=== PATIENT | male | born 1940 | race Caucasian/White ===

== ENCOUNTER 2022-08-18 12:02 | Emergency (ER) | payer OTHER ==
--- OUTSIDE RECORDS SUMMARY | 2022-08-18 12:21 | XMS REPORT | Continuity of Care Document ---
:1940 Author Organization Formerly [facility] t Address [address] [place] [address] [place] [id number] Care Team Providers Name Role Phone [phone] Primary Care Physician Unavailable BREN GREEN Attending Clinician Unavailable DAVE LI Attending Clinician Unavailable BRENDAN VYAS Attending Clinician Unavailable HAMIDA AGGARWAL Attending Clinician Unavailable NASRA GUTIERREZ Attending Clinician Unavailable JOHN CASON Attending Clinician Unavailable NYA ONOFRE Attending Clinician Unavailable BREN GREEN Admitting Clinician Unavailable Payers Payer Name Policy Type Policy Number Effective Date Expiration Date S naomi [facility] MEDICARE [id number] 2020 ADVANTAGE 00:00:00 [employer] CHOICE [id number] 2017 2020 MEDICARE PPO 00:00:00 00:00:00 MEDICARE PART A [id number] 2017 AND B 00:00:00 00:00:00 [employer] NON [id number] 2011 2017 CONTRACTED 00:00:00 00:00:00 [employer] PPO POS [id number] 2011 2011 00:00:00 00:00:00 Problems This patient has no known problems. Allergies, Adverse Reactions, Alerts Allergy Allergy Status Severity Reaction(s) Onset Inactive Treating Comm ents Source Name Type Date Date Clinician CLINDAMY DRUG Active Nausea 2015-0 MD LUNA INGREDI 03-11 Anderso 00:00: n 00 CLINDAMY DRUG Active Nausea 0 MD LUNA INGREDI 03-11 Anderso 00:00: n 00 CLINDAMY DRUG Active Nausea 2015-0 MD LUNA INGREDI 03-11 Anderso 00:00: n 00 CLINDAMY DRUG Active Nausea 2016-0 MD JEREMY INGREDI 1-28 Anderso 00:00: n 00 CLINDAMY DRUG Active Nausea 2016-0 MD JEREMY INGREDI 1-28 Anderso 00:00: n 00 CLINDAMY DRUG Active Nausea 2016-0 MD JEREMY INGREDI 1-28 Anderso 00:00: n 00 CLINDAMY DRUG Active Nausea 2016-0 MD JEREMY INGREDI 1-28 Anderso 00:00: n 00 CLINDAMY DRUG Active Nausea 2016-0 MD JEREMY INGREDI 1-28 Anderso 00:00: n 00 CLINDAMY DRUG Active Nausea 2016-0 MD JEREMY INGREDI 1-28 Anderso 00:00: n 00 CLINDAMY DRUG Active Nausea 2016-0 MD JEREMY INGREDI 1-28 Anderso 00:00: n 00 CLINDAMY DRUG Active Nausea 2016-0 MD JEREMY INGREDI 1-28 Anderso 00:00: n 00 CLINDAMY DRUG Active Nausea 2016-0 MD JEREMY INGREDI 1-28 Anderso 00:00: n 00 CLINDAMY DRUG Active Nausea 2016-0 MD JEREMY INGREDI 1-28 Anderso 00:00: n 00 CLINDAMY DRUG Active Nausea 2016-0 MD JEREMY INGREDI 1-28 Anderso 00:00: n 00 CLINDAMY DRUG Active Nausea 2016-0 MD JEREMY INGREDI 1-28 Anderso 00:00: n 00 CLINDAMY DRUG Active Nausea 2016-0 MD JEREMY INGREDI 1-28 Anderso 00:00: n 00 CLINDAMY DRUG Active Nausea 2016-0 MD JEREMY INGREDI 1-28 Anderso 00:00: n 00 CLINDAMY DRUG Active Nausea 2016-0 MD JEREMY INGREDI 1-28 Anderso 00:00: n 00 CLINDAMY DRUG Active Nausea 2016-0 MD JEREMY INGREDI 1-28 Anderso 00:00: n 00 CLINDAMY DRUG Active Nausea 2016-0 MD JEREMY INGREDI 1-28 Anderso 00:00: n 00 CLINDAMY DRUG Active Nausea 2016-0 MD JEREMY INGREDI 1-28 Anderso 00:00: n 00 CLINDAMY DRUG Active Nausea 2016-0 MD JEREMY INGREDI 1-28 Anderso 00:00: n 00 CLINDAMY DRUG Active Nausea 2016-0 MD JEREMY INGREDI 1-28 Anderso 00:00: n 00 CLINDAMY DRUG Active Nausea 2016-0 MD JEREMY INGREDI 1-28 Anderso 00:00: n 00 CLINDAMY DRUG Active Nausea 2016-0 MD JEREMY INGREDI 1-28 Anderso 00:00: n 00 CLINDAMY DRUG Active Nausea 2016-0 MD JEREMY INGREDI 1-28 Anderso 00:00: n 00 CLINDAMY DRUG Active Nausea 2016-0 MD JEREMY INGREDI 1-28 Anderso 00:00: n 00 CLINDAMY DRUG Active Nausea 2016-0 MD JEREMY INGREDI 1-28 Anderso 00:00: n 00 CLINDAMY DRUG Active Nausea 2016-0 MD JEREMY INGREDI 1-28 Anderso 00:00: n 00 CLINDAMY DRUG Active Nausea 2016-0 MD JEREMY INGREDI 1-28 Anderso 00:00: n 00 CLINDAMY DRUG Active Nausea 2016-0 MD JEREMY INGREDI 1-28 Anderso 00:00: n 00 CLINDAMY DRUG Active Nausea 2016-0 MD JEREMY INGREDI 1-28 Anderso 00:00: n 00 CLINDAMY DRUG Active Nausea 2016-0 MD JEREMY INGREDI 1-28 Anderso 00:00: n 00 CLINDAMY DRUG Active Nausea 2016-0 MD JEREMY INGREDI 1-28 Anderso 00:00: n 00 CLINDAMY DRUG Active Nausea 2016-0 MD JEREMY INGREDI 1-28 Anderso 00:00: n 00 CLINDAMY DRUG Active Nausea 2016-0 MD JEREMY INGREDI 1-28 Anderso 00:00: n 00 CLINDAMY DRUG Active Nausea 2016-0 MD JEREMY INGREDI 1-28 Anderso 00:00: n 00 CLINDAMY DRUG Active Nausea 2016-0 MD JEREMY INGREDI 1-28 Anderso 00:00: n 00 CLINDAMY DRUG Active Nausea 2016-0 MD JEREMY INGREDI 1-28 Anderso 00:00: n 00 CLINDAMY DRUG Active Nausea 2016-0 MD JEREMY INGREDI 1-28 Anderso 00:00: n 00 CLINDAMY DRUG Active Nausea 2016-0 MD JEREMY INGREDI 1-28 Anderso 00:00: n 00 CLINDAMY DRUG Active Nausea 2016-0 MD JEREMY INGREDI 1-28 Anderso 00:00: n 00 CLINDAMY DRUG Active Nausea 2016-0 MD JEREMY INGREDI 1-28 Anderso 00:00: n 00 CLINDAMY DRUG Active Nausea 2016-0 MD JEREMY INGREDI 1-28 Anderso 00:00: n 00 CLINDAMY DRUG Active Nausea 2016-0 MD JEREMY INGREDI 1-28 Anderso 00:00: n 00 CLINDAMY DRUG Active Nausea 2016-0 MD JEREMY INGREDI 1-28 Anderso 00:00: n 00 CLINDAMY DRUG Active Nausea 2016-0 MD JEREMY INGREDI 1-28 Anderso 00:00: n 00 CLINDAMY DRUG Active Nausea 2016-0 MD JEREMY INGREDI 1-28 Anderso 00:00: n 00 CLINDAMY DRUG Active Nausea 2016-0 MD JEREMY INGREDI 1-28 Anderso 00:00: n 00 CLINDAMY DRUG Active Nausea 2016-0 MD JEREMY INGREDI 1-28 Anderso 00:00: n 00 CLINDAMY DRUG Active Nausea 2016-0 MD JEREMY INGREDI 1-28 Anderso 00:00: n 00 CLINDAMY DRUG Active Nausea 2016-0 MD JEREMY INGREDI 1-28 Anderso 00:00: n 00 CLINDAMY DRUG Active Nausea 2016-0 MD JEREMY INGREDI 1-28 Anderso 00:00: n 00 CLINDAMY DRUG Active Nausea 2016-0 MD JEREMY INGREDI 1-28 Anderso 00:00: n 00 CLINDAMY DRUG Active Nausea 2016-0 MD JEREMY INGREDI 1-28 Anderso 00:00: n 00 CLINDAMY DRUG Active Nausea 2016-0 MD JEREMY INGREDI 1-28 Anderso 00:00: n 00 CLINDAMY DRUG Active Nausea 2016-0 MD JEREMY INGREDI 1-28 Anderso 00:00: n 00 CLINDAMY DRUG Active Nausea 2016-0 MD JEREMY INGREDI 1-28 Anderso 00:00: n 00 CLINDAMY DRUG Active Nausea 2016-0 MD JEREMY INGREDI 1-28 Anderso 00:00: n 00 Medications This patient has no known medications. Vital Signs Vital Name Observation Time Observation Value Comments Source WEIGHT 2020-03-26 12:00:40 63.5 kg WEIGHT 2019-09-26 08:26:28 63.5 kg WEIGHT 2019-09-19 10:56:26 62.4 kg Procedures This patient has no known procedures. Encounters Start End Encounter Admission Attending Care Care Encounter Source Date/Time Date/Time Type Type Clinicians Facility Department ID 2021-03-17 Outpatient MDA MDA [id number] 18:17:32 Anderso n 2019-09-19 Outpatient MDA MDA [id number] 08:58:31 Andpk brambila 2022-07-21 2022-07-21 Outpatient SAULO GREEN, MDA Collin/Hep/Nu [id number] 07:48:00 11:14:00 CHATA Mccray n 2022-07-20 2022-07-20 Outpatient JEN, MDA MDA [id number] MD 07:07:10 07:07:10 DAVE Rodriguezers o kosta 2022-06-14 2022-06-14 Outpatient JEN, MDA MDA [id number] 09:30:00 23:59:00 DAVE Yao o kosta 2022-06-14 2022-06-14 Outpatient BRENDAN TADEO MDA MDA [id number] 13:03:51 13:38:00 Maximilian brambila 2022-06-14 2022-06-14 Outpatient JEN, MDA MDA [id number] MD 09:52:15 09:52:15 DAVE Yao o kosta 2022-03-21 2022-03-21 Outpatient SAULO AGGARWAL, HAMIDA MDA MDA [id number] 07:45:00 23:59:00 Maximilian o kosta 2022-03-21 2022-03-21 Outpatient ALESSIA, HAMIDA MDA MDA [id number] 10:56:25 12:01:56 Maximilian o kosta 2022-03-21 2022-03-21 Outpatient SAULO AGGARWAL, HAMIDA MDA MDA [id number] 09:04:42 09:04:42 Maximilian o kosta 2021-12-16 2021-12-16 Outpatient JEN, MDA MDA [id number] 08:15:00 23:59:00 DAVE Yao o kosta 2021-12-16 2021-12-16 Outpatient JEN, MDA MDA [id number] MD 09:42:26 09:42:26 DAVE Yao o kosta 2020-12-15 2020-12-15 Outpatient JEN, MDA MDA [id number] 12:21:16 23:59:00 DAVE brambila 2020-12-15 2020-12-15 Outpatient SAULO LI, MDA MDA [id number] 12:21:42 17:02:03 DAVE brambila 2020-10-21 2020-10-21 Outpatient HAMLET AMBROSEI MDA MDA [id number] 09:15:00 23:59:00 Maximilian brambila 2020-10-21 2020-10-21 Outpatient HAMLET AMBROSEI MDA MDA [id number] 09:52:37 10:52:13 Maximilian o kosta 2020-10-21 2020-10-21 Outpatient HAMLET AMBROSEI MDA MDA [id number] 08:42:05 08:42:05 Maximilian brambila 2020-09-17 2020-09-17 Outpatient SAULO LI, MDA MDA [id number] 08:48:03 23:59:00 DAVE brambila 2020-09-17 2020-09-17 Outpatient SAULO LI, MDA MDA [id number] 08:48:26 15:04:22 DAVE brambila 2020-05-24 2020-05-24 Outpatient SAULO LI, MDA MDA [id number] 09:00:00 23:59:00 DAVE brambila 2020-05-24 2020-05-24 Outpatient SAULO LI, MDA MDA [id number] 10:28:17 10:28:17 DAVE brambila 2020-03-26 2020-03-26 Outpatient [facility] MDA MDA [id number] 08:25:26 23:59:00 Maximilain BOUCHER 2020-03-26 2020-03-26 Outpatient BRENDAN TADEO MDA MDA [id number] 09:06:56 21:24:58 Maximilian brambila 2020-03-26 2020-03-26 Outpatient SAULO LI, MDA MDA [id number] 08:26:12 13:39:50 DAVE brambila 2020-03-25 2020-03-25 Outpatient BRENDAN TADEO MDA MDA [id number] 00:00:00 00:00:00 Maximilian brambila 2020-03-24 2020-03-24 Outpatient SAULO LI, MDA MDA [id number] MD 00:00:00 00:00:00 DAVE brambila 2020-03-24 2020-03-24 Outpatient SAULO NERI MDA MDA [id number] 00:00:00 00:00:00 Maximilian BOUCHER 2019-09-26 2019-09-26 Outpatient SAULO AGGARWAL HAMIDA MDA MDA [id number] 08:09:41 23:59:00 Maximilian brambila 2019-09-22 2019-09-22 Outpatient SAULO AGGARWAL, HAMIDA MDA MDA [id number] 12:17:52 13:21:34 Maximilian brambila 2019-09-19 2019-09-19 Outpatient SAULO LI, MDA MDA [id number] 07:48:44 23:59:00 DAVE brambila 2019-09-19 2019-09-19 Outpatient SAULO IL, MDA MDA [id number] 07:49:16 12:47:10 DAVE brambila 2019-09-19 2019-09-19 Outpatient SAULO CHAAHL-HENR MDA MDA [id number] 09:39:05 09:39:05 Y, JOHN brambila 2019-09-19 2019-09-19 Outpatient NYA LUZ MDA MDA [id number] 08:05:42 08:49:41 Maximilian brambila 2017-10-19 2017-10-19 Outpatient EL SALAMI-HENR MDA MDA [id number] 12:18:00 18:07:16 Y, JOHN brambila 2017-04-05 2017-04-05 Outpatient EL SALAMI-HENR MDA MDA [id number] 00:00:00 00:00:00 Y, JOHN brambila 2017-04-04 2017-04-04 Outpatient EL SALAMI-HENR MDA MDA [id number] 00:00:00 00:00:00 Y, JOHN brambila Results This patient has no known results.
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
--- NOTE | 2022-08-18 13:48 | EDPHYS ---
Physician Documentation [facility] Name: Reed Claire Age: 82 yrs Sex: Male : 1940 Arrival Date: 08/18/2022 Time: 12:02 Bed 15 Private MD: Dayton Coon ED Physician Delvis Kasper HPI: 08/18 12:51 This 82 yrs old Male presents to ER via Ambulatory with complaints of Fall Injury, Head sp3 Injury-Adult. 12:51 82-year-old male with history of prior leukemia, diabetes insipidus, adrenal sp3 insufficiency now presents to the ED with chief complaint close head injury that occurred yesterday evening at home. Patient was sitting on a barstool without a back and fell asleep and tilted over and hit the sharp edge of the table on the superior aspect of his scalp. Negative LOC and only mild headache reported yesterday which has now subsequently resolved. Currently patient has no complaints whatsoever other than the swelling at the top of his head. Patient not on any antiplatelet agents or any anticoagulants. No prior head injury reported. On review of systems, he denies current headache, neck pain, facial pain, changes in vision, any neurological symptoms, and chest pain, back pain, shortness of breath, syncope, near syncope, rash, bleeding, or any other signs or symptoms at this time.. Historical: - Allergies: 12:16 Clindamycin; os - Home Meds: 12:16 Calcarb 600 With Vitamin D Oral [Active]; desmopresin 0.1 mg tab bid [Active]; os hydrocortisone 5 mg oral tablet 3 tabs [Active]; levothyroxine 112 mcg tablet [Active]; lisinopril 10 mg Oral tablet once [Active]; 12:22 Metamucil Smooth Texture Oral [Active]; Miralax 17 gram/dose Oral powder 17 grams prn os [Active]; valacyclovir 1 gram Oral tablet daily [Active]; - PMHx: 12:21 Leukemia; diabetes insipidous; os 12:22 adrenal insufficiency; Hypothyroidism; Osteoporosis; os - Immunization history:: Adult Immunizations up to date. - Social history:: Smoking status: Patient denies any tobacco usage or history of. ROS: 12:52 Constitutional: Negative for fever, chills, and weight loss, Eyes: Negative for injury, sp3 pain, redness, and discharge, ENT: Negative for injury, pain, and discharge, Neck: Negative for injury, pain, and swelling, Cardiovascular: Negative for chest pain, palpitations, and edema, Respiratory: Negative for shortness of breath, cough, wheezing, and pleuritic chest pain, Abdomen/GI: Negative for abdominal pain, nausea, vomiting, diarrhea, and constipation, Back: Negative for injury and pain, : Negative for injury, bleeding, discharge, and swelling, MS/Extremity: Negative for injury and deformity, Skin: Negative for injury, rash, and discoloration, Psych: Negative for depression, anxiety, suicide ideation, homicidal ideation, and hallucinations, Allergy/Immunology: Negative for hives, rash, and allergies, Endocrine: Negative for neck swelling, polydipsia, polyuria, polyphagia, and marked weight changes, Hematologic/Lymphatic: Negative for swollen nodes, abnormal bleeding, and unusual bruising. 12:52 All other systems are negative. Exam: 12:52 Constitutional: This is a well developed, well nourished patient who is awake, alert, sp3 and in no acute distress. Eyes: Pupils equal round and reactive to light, extra-ocular motions intact. Lids and lashes normal. Conjunctiva and sclera are non-icteric and not injected. Cornea within normal limits. Periorbital areas with no swelling, redness, or edema. ENT: Nares patent. No nasal discharge, no septal abnormalities noted. External auditory canals are clear. Oropharynx with no redness, swelling, or masses, exudates, or evidence of obstruction, uvula midline. Mucous membranes moist. Neck: Trachea midline, no thyromegaly or masses palpated, and no cervical lymphadenopathy. Supple, full range of motion without nuchal rigidity, or vertebral point tenderness. No Meningismus. Chest/axilla: Normal chest wall appearance and motion. Nontender with no deformity. No lesions are appreciated. Cardiovascular: Regular rate and rhythm with a normal S1 and S2. No gallops, murmurs, or rubs. Normal PMI, no JVD. No pulse deficits. Respiratory: Lungs have equal breath sounds bilaterally, clear to auscultation and percussion. No rales, rhonchi or wheezes noted. No increased work of breathing, no retractions or nasal flaring. Abdomen/GI: Soft, non-tender, with normal bowel sounds. No distension or tympany. No guarding or rebound. No evidence of tenderness throughout. Back: No spinal tenderness. No costovertebral tenderness. Full range of motion. Skin: Warm, dry with normal turgor. Normal color with no rashes, no lesions, and no evidence of cellulitis. MS/ Extremity: Pulses equal, no cyanosis. Neurovascular intact. Full, normal range of motion. Neuro: Awake and alert, GCS 15, oriented to person, place, time, and situation. Cranial nerves II-XII grossly intact. Motor strength 5/5 in all extremities. Sensory grossly intact. Cerebellar exam normal. Normal gait. Psych: Awake, alert, with orientation to person, place and time. Behavior, mood, and affect are within normal limits. 12:52 Head/face: Patient has a 3 cm x 3 cm boggy hematoma on the superior aspect of his head with mild overlying abrasion which is not currently bleeding. No laceration noted.. Vital Signs: 12:26 BP 132 / 89; Pulse 88; Resp 18; Temp 98; Pulse Ox 100% on R/A; os 13:00 BP 127 / 87; Pulse 74; Resp 18; Pulse Ox 99% on R/A; eh3 MDM: 12:27 Patient medically screened. sp3 12:53 Data reviewed: vital signs, nurses notes, old medical records, radiologic studies. ED sp3 course: 82-year-old male with PMH above now with closed head injury of the scalp. I am not highly suspicious for intracranial hemorrhage however CT scan of the head is indicated. If CT is negative, we will safely discharge patient home.. 13:46 ED course: CT scan of the head is negative and patient remains asymptomatic. We will sp3 safely discharge patient home at this time.. 08/18 12:28 Order name: CT Head Brain wo Cont; Complete Time: 13:46 sp3 Administered Medications: No medications were administered Disposition Summary: 08/18/22 13:47 Discharge Ordered Location: Home sp3 Condition: Stable sp3 Diagnosis - Closed head injury, scalp hematoma, scalp abrasion sp3 Followup: sp3 - With: Private Physician - When: As needed - Reason: If symptoms return, Continuance of care Discharge Instructions: - Discharge Summary Sheet sp3 - Head Injury, Adult sp3 Forms: - Medication Reconciliation Form sp3 - Thank You Letter sp3 - Antibiotic Education sp3 - Prescription Opioid Use sp3 - [email or web address] sp3 Signatures: Dispatcher [employer] Delvis Mina MD MD sp3 Cisco Arnold RN RN os Corrections: (The following items were deleted from the chart) 12:26 12:16 Allergies: No Known Allergies; os os
[2022-08-18 14:27] VITALS: TEMP 98
[2022-08-18 14:28] VITALS: BP 127/87; O2SAT 99
== END 2022-08-18 13:55 | disposition home or self-care (01) ==
LOC: ER 12:02
DX: S00.01XA Abrasion of scalp, initial encounter (principal); E11.9 Type 2 diabetes mellitus without complications; E03.9 Hypothyroidism, unspecified; Z85.6 Personal history of leukemia; Z88.3 Allergy status to other anti-infective agents
CPT/HCPCS: 70450; 99283

== ENCOUNTER 2024-03-08 18:34 | Emergency (ER) | payer OTHER ==
--- OUTSIDE RECORDS SUMMARY | 2024-03-08 18:39 | XMS REPORT | Continuity of Care Document ---
Author Name Unknown Address [address] [place] [address] [address] thconnect Address [address] [facility] 1 [address] [place] [address] Care Team Providers Care Mangle Tender Name Role Phone [phone] Primary Care Physician NEGRO Heath Attending Clinician DAVE Seymour Attending Clinician BRENDAN Shelby Attending Clinician NUBIA Gonzales Attending Clinician HAMIDA Berumen Attending Clinician Unavailable BREN GREEN Attending Clinician NASRA Wagner Attending Clinician JOHN Leonard Attending Clinician NYA Combs Attending Clinician BREN Harris Admitting Clinician Hernesto walker Payers Payer Name Policy Type Policy Number Effective Date Expirati on Date Source [facility] MEDICARE ADVANTAGE [id number] 2020 00:00:00 [employer] MEDICARE PPO [id number] 2017 00:00:00 2020 00:00:00 MEDICARE PART A AND B [id number] 2004 00:00:00 2017 00:00:00 [employer] NON CONTRACTED [id number] 2011 00:00:00 2017 00:00:00 [employer] PPO POS [id number] 2011 00:00:00 2011 00:00:00 Allergies, Adverse Reactions, Alerts Allergy Name Allergy Type Status Severity Reaction(s) Onset Date Inactive Date Treating Clinician Comments Source [facility] Active Nausea 03-11 00:00: 00 MD Javier brambila [employer] [employer] [facility] Active Nausea 03-11 00:00: 00 MD Javier brambila [facility] Active Nausea 03-11 00:00: 00 MD Javier brambila [facility] Active Nausea 03-11 00:00: 00 MD Javier brambila [facility] Active Nausea 03-11 00:00: 00 MD Javier brambila [facility] Active Nausea 03-11 00:00: 00 MD Javier brambila [facility] Active Nausea 03-11 00:00: 00 MD Javier brambila [facility] Active Nausea 03-11 00:00: 00 MD Javier brambila [facility] Active Nausea 03-11 00:00: 00 MD Javier brambila [facility] [facility] Active Nausea 03-11 00:00: 00 MD Javier brambila [facility] [facility] Active Nausea 03-11 00:00: 00 MD Javier brambila [facility] [facility] Active Nausea 03-11 00:00: 00 MD Javier brambila [facility] [facility] Active Nausea 03-11 00:00: 00 MD Javier brambila [facility] Active Nausea 03-11 00:00: 00 MD Javier brambila [facility] [employer] [facility] Active Nausea 03-11 00:00: 00 MD Javier brambila [facility] [facility] Active Nausea 03-11 00:00: 00 MD Javier brambila [facility] Active Nausea 03-11 00:00: 00 MD Javier brambila [facility] Active Nausea 03-11 00:00: 00 MD Javier brambila [facility] Active Nausea 03-11 00:00: 00 MD Javier brambila [facility] Active Nausea 03-11 00:00: 00 MD Javier brambila [employer] [employer] [facility] Active Nausea 03-11 00:00: 00 MD Jaiver brambila [employer] [employer] [facility] Active Nausea 03-11 00:00: 00 MD Javier brambila [employer] [employer] [facility] Active Nausea 03-11 00:00: 00 MD Javier brambila [employer] [employer] [facility] Active Nausea 03-11 00:00: 00 MD Javier brambila [facility] [facility] Active Nausea 03-11 00:00: 00 MD Javier brambila [facility] [facility]GR[facility]I Active Nausea 03-11 00:00: 00 MD Javier brambila [facility] INGR[facility]I Active Nausea 03-11 00:00: 00 MD Javier brambila [facility] [facility]GR[facility]I Active Nausea 03-11 00:00: 00 MD Javier brambila [facility] INGR[facility]I Active Nausea 03-11 00:00: 00 MD Javier brambila [facility] INGR[facility]I Active Nausea 03-11 00:00: 00 MD Javier brambila [facility] INGR[facility]I Active Nausea 03-11 00:00: 00 MD Javier brambila [employer] [employer] INGREDI Active Nausea 03-11 00:00: 00 MD Javier brambila [facility] [employer] [facility]GR[facility] Active Nausea 03-11 00:00: 00 MD Javier brambila [employer] [employer] INGR[facility]I Active Nausea 03-11 00:00: 00 MD Javier brambila [facility] [facility]GR[facility]I Active Nausea 03-11 00:00: 00 MD Javier brambila [facility] INGR[facility]I Active Nausea 03-11 00:00: 00 MD Javier brambila [facility] INGR[facility]I Active Nausea 03-11 00:00: 00 MD Javier brambila [facility] INGR[facility]I Active Nausea 03-11 00:00: 00 MD Javier brambila [facility] INGR[facility]I Active Nausea 03-11 00:00: 00 MD Javier brambila [facility] INGR[facility]I Active Nausea 03-11 00:00: 00 MD Javier brambila [facility] INGR[facility]I Active Nausea 03-11 00:00: 00 MD Javier brambila [facility] INGR[facility]I Active Nausea 03-11 00:00: 00 MD Javier brambila [facility] INGR[facility]I Active Nausea 03-11 00:00: 00 MD Javier brambila [facility] INGR[facility]I Active Nausea 03-11 00:00: 00 MD Javier brambila [facility] INGR[facility]I Active Nausea 03-11 00:00: 00 MD Javier brambila [facility] INGREDI Active Nausea 03-11 00:00: 00 MD Javier brambila CL[facility]EM[facility] INGREDI Active Nausea 03-11 00:00: 00 MD Javier brambila [facility] INGREDI Active Nausea 03-11 00:00: 00 MD Javier brambila [facility] INGREDI Active Nausea 03-11 00:00: 00 MD Javier brambila [facility] INGREDI Active Nausea 03-11 00:00: 00 MD Javier brambila [facility] INGREDI Active Nausea 03-11 00:00: 00 MD Javier brambila [facility] INGR[facility]I Active Nausea 03-11 00:00: 00 MD Javier brambila [facility] INGR[facility]I Active Nausea 03-11 00:00: 00 MD Javier brambila CL[facility] INGREDI Active Nausea 03-11 00:00: 00 MD Javier brambila [facility] INGR[facility]I Active Nausea 03-11 00:00: 00 MD Javier brambila [facility] INGR[facility]I Active Nausea 03-11 00:00: 00 MD Javier brambila [facility] [facility]GR[facility] Active Nausea 03-11 00:00: 00 MD Javier brambila [facility]GR[facility]I Active Nausea 03-11 00:00: 00 MD Javier brambila [facility] INGR[facility]I Active Nausea 03-11 00:00: 00 MD Javier brambila [facility]GR[facility] Active Nausea 03-11 00:00: 00 MD Javier brambila [facility] INGREDI Active Nausea 03-11 00:00: 00 MD Javier brambila [facility] INGREDI Active Nausea 03-11 00:00: 00 MD Javier brambila [facility] INGR[facility]I Active Nausea 03-11 00:00: 00 MD Javier brambila [facility] INGR[facility]I Active Nausea 03-11 00:00: 00 MD Javier brambila [facility] INGR[facility]I Active Nausea 03-11 00:00: 00 MD Javier brambila [facility] INGR[facility]I Active Nausea 03-11 00:00: 00 MD Javier brambila [facility] INGREDI Active Nausea 03-11 00:00: 00 MD Javier brambila [facility] INGR[facility]I Active Nausea 03-11 00:00: 00 MD Javier brambila CL[facility]EREM[facility] INGREDI Active Nausea 03-11 00:00: 00 MD Javier brambila CL[facility]EM[facility] INGREDI Active Nausea 03-11 00:00: 00 MD Javier brambila [facility] INGREDI Active Nausea 03-11 00:00: 00 MD Javier brambila [facility] INGR[facility]I Active Nausea 03-11 00:00: 00 MD Javier brambila [facility] INGREDI Active Nausea 03-11 00:00: 00 MD Javier brambila [facility] INGR[facility]I Active Nausea 03-11 00:00: 00 MD Javier brambila [facility] INGR[facility]I Active Nausea 03-11 00:00: 00 MD Javier brambila [facility]GR[facility] Active Nausea 03-11 00:00: 00 MD Javier brambila [facility] INGR[facility]I Active Nausea 03-11 00:00: 00 MD Javier brambila CL[facility]Y JEREMY [facility] INGREDI Active Nausea 03-11 00:00: 00 MD Javier brambila [facility] INGREDI Active Nausea 03-11 00:00: 00 MD Javier brambila [facility] INGR[facility]I Active Nausea 03-11 00:00: 00 MD Javier brambila [facility] INGR[facility]I Active Nausea 03-11 00:00: 00 MD Javier brambila [facility]EM[facility] INGREDI Active Nausea 03-11 00:00: 00 MD Javier brambila CL[facility]EM[facility] INGREDI Active Nausea 03-11 00:00: 00 MD Javier brambila CL[facility] JEREM[facility] INGREDI Active Nausea 03-11 00:00: 00 MD Javier brambila CL[facility] INGREDI Active Nausea 03-11 00:00: 00 MD Javier brambila CL[facility]Y JEREMY [facility] INGREDI Active Nausea 03-11 00:00: 00 MD Javier brambila [facility]EM[facility] INGREDI Active Nausea 03-11 00:00: 00 MD Javier brambila CL[facility] J[facility]EM[facility] INGREDI Active Nausea 03-11 00:00: 00 MD Javier brambila CL[facility]EM[facility] INGREDI Active Nausea 03-11 00:00: 00 MD Javier brambila CL[facility]Y JEREM[facility] INGREDI Active Nausea 03-11 00:00: 00 MD Javier brambila CL[facility]EM[facility] INGREDI Active Nausea 03-11 00:00: 00 MD Javier brambila [facility] INGREDI Active Nausea 03-11 00:00: 00 MD Javier brambila [facility] INGR[facility]I Active Nausea 03-11 00:00: 00 MD Javier brambila [facility] [facility]GR[facility] Active Nausea 03-11 00:00: 00 MD Javier brambila Vital Signs Vital Name Observation Time Observation Value Comments S ource WEIGHT 2020-03-26 12:00:40 63.5 kg WEIGHT 2019-09-26 08:26:28 63.5 kg WEIGHT 2019-09-19 10:56:26 62.4 kg Encounters Start Date/Time End Date/Time Encounter Type Admission Type [facility]ending [facility] Facility Care Department Encounter ID Source 2021-03-17 18:17:32 Outpatient RAPHAEL LIM [id number] MD Javier brambila 2019-09-19 08:58:31 Outpatient RAPHAEL LIM [id number] MD Javier brambila 2023-12-19 08:45:00 2023-12-19 23:59:00 Outpatient NEGRO COWART MDA, MDA [id number] MD Javier brambila 2023-12-19 09:28:20 2023-12-19 11:02:25 Outpatient DAVE BUENROSTRO MDA MDA [id number] MD Javier brambila 2023-06-20 09:30:00 2023-06-20 23:59:00 Outpatient DAVE BUENROSTRO MDA MDA [id number] MD Javier brambila 2023-06-20 12:55:32 2023-06-20 13:16:54 Outpatient BRENDAN TADEO MDA MDA [id number] MD Javier brambila 2023-06-20 09:50:27 2023-06-20 09:50:27 Outpatient DAVE BUENROSTRO MDA MDA [id number] MD Javier brambila 2023-03-22 08:30:00 2023-03-22 23:59:00 Outpatient EL LORNA, NUBIA MDA MDA [id number] MD Javier brambila 2023-03-22 11:26:12 2023-03-22 11:26:12 Outpatient SAULO AGGARWAL HAMIDA MDA MDA [id number] MD Javier brambila 2023-03-22 09:13:06 2023-03-22 09:13:06 Outpatient SAULO PULS, NUBIA MDA MDA [id number] MD Javier brambila 2022-12-22 09:30:00 2022-12-22 23:59:00 Outpatient DAVE BUENROSTRO MDA MDA [id number] MD Javier brambila 2022-12-22 10:22:29 2022-12-22 10:22:29 Outpatient SAULO LI DAVE MDA MDA [id number] MD Javier brambila 2022-07-21 07:48:00 2022-07-21 11:14:00 Outpatient SAULO WARNERCHATA Benítez A MDA Collin/Hep/Nu t [id number] MD Javier brambila 2022-07-20 07:07:10 2022-07-20 07:07:10 Outpatient SAULO LI DAVE MDA MDA [id number] MD Javier brambila 2022-06-14 09:30:00 2022-06-14 23:59:00 Outpatient SAULO LI DAVE MDA MDA [id number] MD Javier brambila 2022-06-14 13:03:51 2022-06-14 13:38:00 Outpatient BRENDAN TADEO MDA MDA [id number] MD Javier brambila 2022-06-14 09:52:15 2022-06-14 09:52:15 Outpatient DAVE BUENROSTRO MDA MDA [id number] MD Javier brambila 2022-03-21 07:45:00 2022-03-21 23:59:00 Outpatient EL ALESSIA, HAMIDA MDA MDA [id number] MD Javier brambila 2022-03-21 10:56:25 2022-03-21 12:01:56 Outpatient EL ALESSIA, HAMIDA MDA MDA [id number] MD Javier brambila 2022-03-21 09:04:42 2022-03-21 09:04:42 Outpatient SAULO AGGARWAL, HAMIDA MDA MDA [id number] MD Javier brambila 2021-12-16 08:15:00 2021-12-16 23:59:00 Outpatient DAVE BUENROSTRO MDA MDA [id number] MD Javier brambila 2021-12-16 09:42:26 2021-12-16 09:42:26 Outpatient DAVE BUENROSTRO MDA MDA [id number] MD Javier brambila 2020-12-15 12:21:16 2020-12-15 23:59:00 Outpatient DAVE BUENROSTRO MDA MDA [id number] MD Javier brambila 2020-12-15 12:21:42 2020-12-15 17:02:03 Outpatient DAVE BUENROSTRO MDA MDA [id number] MD Javier brambila 2020-10-21 09:15:00 2020-10-21 23:59:00 Outpatient SAULO AGGARWAL, HAMIDA MDA MDA [id number] MD Javier brambila 2020-10-21 09:52:37 2020-10-21 10:52:13 Outpatient EL ALESSIA, HAMIDA MDA MDA [id number] MD Javier brambila 2020-10-21 08:42:05 2020-10-21 08:42:05 Outpatient SAULO AGGARWAL, HAMIDA MDA MDA [id number] MD Javier brambila 2020-09-17 08:48:03 2020-09-17 23:59:00 Outpatient DAVE BUENROSTRO MDA MDA [id number] MD Javier brambila 2020-09-17 08:48:26 2020-09-17 15:04:22 Outpatient DAVE BUENROSTRO MDA MDA [id number] MD Javier brambila 2020-05-24 09:00:00 2020-05-24 23:59:00 Outpatient DAVE BUENROSTRO MDA MDA [id number] MD Javier brmabila 2020-05-24 10:28:17 2020-05-24 10:28:17 Outpatient DAVE BUENROSTRO MDA MDA [id number] MD Javier brambila 2020-03-26 08:25:26 2020-03-26 23:59:00 Outpatient SAULO NASRA BAILEY MDA MDA [id number] MD Javier brambila 2020-03-26 09:06:56 2020-03-26 21:24:58 Outpatient BRENDAN TADEO MDA MDA [id number] MD Javier brambila 2020-03-26 08:26:12 2020-03-26 13:39:50 Outpatient DAVE BUENROSTRO MDA MDA [id number] MD Javier brambila 2020-03-25 00:00:00 2020-03-25 00:00:00 Outpatient BRENDAN TADEO MDA MDA [id number] MD Javier brambila 2020-03-24 00:00:00 2020-03-24 00:00:00 Outpatient DAVE BUENROSTRO MDA MDA [id number] MD Javier brambila 2020-03-24 00:00:00 2020-03-24 00:00:00 Outpatient NASRA CRUZ MDA MDA [id number] MD Javier brambila 2019-09-26 08:09:41 2019-09-26 23:59:00 Outpatient SAULO HAMLET AGGARWALI MDA MDA [id number] MD Javier brambila 2019-09-22 12:17:52 2019-09-22 13:21:34 Outpatient SAULO AGGARWAL HAMIDA MDA MDA [id number] MD Javier brambila 2019-09-19 07:48:44 2019-09-19 23:59:00 Outpatient DAVE BUENROSTRO MDA MDA [id number] MD Javier brambila 2019-09-19 07:49:16 2019-09-19 12:47:10 Outpatient DAVE BUENROSTRO MDA MDA [id number] MD Javier brambila 2019-09-19 09:39:05 2019-09-19 09:39:05 Outpatient JOHN BLACKWOOD MDA MDA [id number] MD Javier brambila 2019-09-19 08:05:42 2019-09-19 08:49:41 Outpatient NYA LUZ MDA MDA [id number] MD Javier brambila 2017-10-19 12:18:00 2017-10-19 18:07:16 Outpatient SAULO CHAHAL-PINA Granados AMORI MDA MDA [id number] MD Javier brambila 2017-04-05 00:00:00 2017-04-05 00:00:00 Outpatient JOHN BLACKWOOD MDA MDA [id number] MD Javier brambila 2017-04-04 00:00:00 2017-04-04 00:00:00 Outpatient SAULO CHAHAL-PINA Granados AMORI MDA MDA [id number] MD Javier brambila
[2024-03-08] MEDS ORDERED: HYDROCORTISONE SUC 100 MG INJ ONE (19:40)
[2024-03-08] MEDS ORDERED: BACI/NEOMYCIN/POLY OINT 15GM TOP ONE (19:40)
[2024-03-08] MEDS ORDERED: NA CHLORIDE 0.9% 1,000 ML ONE (19:41)
[2024-03-08] MEDS ORDERED: TDAP (DIPHTH,PERTUSS(ACELL),TET VAC) 0.5 ML VIAL IMVAC ONE (19:41)
[2024-03-08 19:42] LABS: Absolute Eosinophils 0.1 K/uL (0-0.5); Absolute Lymphocytes (CBC) 0.9 K/uL (0.7-4.9); Absolute Monocytes 0.6 K/uL (0.1-1.3); Absolute Neutrophil 3.6 K/uL (1.8-8.0); Basophils % 0.6 % (0-1.3); Eosinophils % 2.6 % (0-4.4); Hematocrit 39.1 % (39.6-49.0); Hemoglobin 13.5 g/dL (13.6-17.9); Lymphocytes % 16.8 % (15.3-44.8); MCH 33.9 pg (27.0-35.0); MCHC 34.4 g/dL (32.0-36.0); MCV 98.5 fL (80-100); MPV 8.5 fL (7.6-11.3); Monocytes % 10.9 % (3.3-12.3); Neutrophils % 69.1 % (41.7-73.7); Nucleated Red Blood Cells % 0.1 % (0-0); Platelets 136 thou/uL (152-406); RBC Red Blood Cell Count 3.97 M/uL (4.33-5.43); Red Cell Distribution Width 13.1 % (12.1-15.2)
[2024-03-08 19:53] LABS: PT Prothrombin Time 11.2 SECONDS (9.4-12.5); Protime INR 1.07
--- NOTE | 2024-03-08 20:00 | RAD REPORT ---
EXAMINATION: CT HEAD WITHOUT CONTRAST CT CERVICAL SPINE WITHOUT CONTRAST CLINICAL INDICATION: Head and neck injury status post fall. Head and neck pain TECHNIQUE: Axial CT images from the skull base to the vertex without intravenous contrast. Axial CT i mages through the cervical spine were obtained without intravenous contrast. Sagittal and coronal reformatted images were created from the data set. Coronal and sagittal reformatted images were creat ed from the data set. One or more of the following dose reduction techniques were used: Automated exposure control, adjustment of the mA and/or kV according to patient size, and/or iterative reconstr uction. Unless otherwise specified, incidental findings do not require dedicated imaging follow-up. TH6704. Comparison: Head CT 2022 and C-spine x-ray 2007 FINDINGS: An intracranial bleed is not seen. Ventricles are normal in caliber. No significant hypodensity within the brain No extra-axial fluid collection. Ectasia of the basilar and internal carotid arteries is present. No fluid within the sinuses/mastoids No fracture or dislocation is seen involving the cervical spine. Slight posterior subluxation C3 on C4 is chronic. Spondylosis cervical spine. IMPRESSION: No acute intracranial abnormality noted A cervical fracture is not seen. If the patient continues to have symptoms to suggest acute LICSW/spinal pathology then MRI would be rec ommended
[2024-03-08 20:01] LABS: ALT/SGPT 28 U/L (16-61); AST/SGOT 30 U/L (15-37); Albumin 3.4 g/dL (3.4-5.0); Alkaline Phosphatase 68 U/L (45-117); Anion Gap 9.3 mEq/L (5.0-15.0); BUN Blood Urea Nitrogen 26 mg/dL (7-18); Bicarbonate 28 mEq/L (21-32); Bilirubin Direct < 0.2 mg/dL (0-0.2); Bilirubin Indirect, Calculated 0.2 mg/dL (0.2-0.8); Bilirubin Total 0.4 mg/dL (0.2-1.0); Globulin 3.3 g/dL (2.3-3.5); Glomerular Filtration Rate 89 ml/min (=/>90); Glucose Level 103 mg/dL (74-106); Magnesium 2.2 mg/dL (1.6-2.4); NT PRO-BNP 637 pg/mL (<450); Potassium 4.3 mEq/L (3.5-5.1); Protein, Total 6.7 g/dL (6.4-8.2); Sodium Level 137 mEq/L (136-145); Troponin High Sensitivity 9.4 pg/mL (<58.9)
--- NOTE | 2024-03-08 20:07 | EDPHYS ---
Physician Documentation [facility] Name: Reed Claire Age: 83 yrs Sex: Male : 1940 Arrival Date: 03/08/2024 Time: 18:34 Bed 14 Private MD: ED Physician Geovani Craig HPI: 03/08 19:11 This 83 yrs old Male presents to ER via Ambulatory with complaints of Fall Injury, Head ge Injury-Adult, Neck pain. Historical: - Allergies: 18:48 Clindamycin; ko1 - PMHx: 18:48 adrenal insufficiency; Hypothyroidism; diabetes insipidous; Leukemia; Osteoporosis; ko1 - Immunization history:: Last tetanus immunization: < 10 years ago. - Infectious Disease History:: Denies. - Social history:: Smoking status: Patient denies any tobacco usage or history of. ROS: 19:12 Constitutional: Negative for fever, chills, and weight loss, Eyes: Negative for injury, ge pain, redness, and discharge, ENT: Negative for injury, pain, and discharge, Neck: Negative for injury, pain, and swelling, Cardiovascular: Negative for chest pain, palpitations, and edema, Respiratory: Negative for shortness of breath, cough, wheezing, and pleuritic chest pain, Abdomen/GI: Negative for abdominal pain, nausea, vomiting, diarrhea, and constipation, Back: Negative for injury and pain, : Negative for injury, bleeding, discharge, and swelling, MS/Extremity: Negative for injury and deformity, Skin: Negative for injury, rash, and discoloration, Psych: Negative for depression, anxiety, suicide ideation, homicidal ideation, and hallucinations, Allergy/Immunology: Negative for hives, rash, and allergies, Endocrine: Negative for neck swelling, polydipsia, polyuria, polyphagia, and marked weight changes, Hematologic/Lymphatic: Negative for swollen nodes, abnormal bleeding, and unusual bruising, 19:12 Neuro: Positive for dizziness, near syncope, weakness, Exam: 19:12 Constitutional: This is a well developed, well nourished patient who is awake, alert, ge and in no acute distress. Eyes: Pupils equal round and reactive to light, extra-ocular motions intact. Lids and lashes normal. Conjunctiva and sclera are non-icteric and not injected. Cornea within normal limits. Periorbital areas with no swelling, redness, or edema. ENT: Nares patent. No nasal discharge, no septal abnormalities noted. Tympanic membranes are normal and external auditory canals are clear. Oropharynx with no redness, swelling, or masses, exudates, or evidence of obstruction, uvula midline. Mucous membranes moist. Neck: Trachea midline, no thyromegaly or masses palpated, and no cervical lymphadenopathy. Supple, full range of motion without nuchal rigidity, or vertebral point tenderness. No Meningismus. Chest/axilla: Normal chest wall appearance and motion. Nontender with no deformity. No lesions are appreciated. Cardiovascular: Regular rate and rhythm with a normal S1 and S2. No gallops, murmurs, or rubs. Normal PMI, no JVD. No pulse deficits. Respiratory: Lungs have equal breath sounds bilaterally, clear to auscultation and percussion. No rales, rhonchi or wheezes noted. No increased work of breathing, no retractions or nasal flaring. Abdomen/GI: Soft, non-tender, with normal bowel sounds. No distension or tympany. No guarding or rebound. No evidence of tenderness throughout. Back: No spinal tenderness. No costovertebral tenderness. Full range of motion. Male : Normal genitalia with no discharge or lesions. MS/ Extremity: Pulses equal, no cyanosis. Neurovascular intact. Full, normal range of motion., bilateral aka Neuro: Awake and alert, GCS 15, oriented to person, place, time, and situation. Cranial nerves II-XII grossly intact. Motor strength 5/5 in all extremities. Sensory grossly intact. Cerebellar exam normal. Normal gait. Psych: Awake, alert, with orientation to person, place and time. Behavior, mood, and affect are within normal limits. 20:08 ECG was reviewed by the Attending Physician. [facility] Vital Signs: 18:40 BP 135 / 86; Pulse 72; Resp 16; Temp 98.3; Pulse Ox 98% ; ko1 20:30 BP 137 / 88; Pulse 75; Resp 17; Temp 98; Pulse Ox 99% on R/A; Pain 0/10; rg5 20:30 Pain Scale: Adult rg5 MDM: 19:02 Medical Screening Exam initiated [facility] 19:15 Differential diagnosis: abrasion, closed head injury, contusion, multiple trauma, ge sprain, strain. Data reviewed: vital signs, nurses notes, lab test result(s), EKG, radiologic studies, CT scan, plain films. Consideration of Admission/Observation Escalation of care including admission/observation considered. I considered the following discharge prescriptions or medication management in the emergency department Medications were administered in the Emergency Department. See MAR. Independent interpretation of the following test(s) in the Emergency Department EKG: See my EKG interpretation above. Test considered but Not performed: MRI: no mri brain, not available. Care significantly affected by the following chronic conditions: Diabetes, adrenal insufficency, leukemia,hypothyroid. 03/08 19:11 Order name: Basic Metabolic Panel; Complete Time: 20:05 [facility] 03/08 19:11 Order name: CBC with Diff; Complete Time: 20:05 [facility] 03/08 19:11 Order name: LFT's; Complete Time: 20:05 [facility] 03/08 19:11 Order name: Magnesium; Complete Time: 20:05 [facility] 03/08 19:11 Order name: NT PRO-BNP; Complete Time: 20:05 [facility] 03/08 19:11 Order name: PT-INR; Complete Time: 20:05 [facility] 03/08 19:11 Order name: Troponin HS; Complete Time: 20:05 [facility] 03/08 19:11 Order name: Urinalysis w/ reflexes; Complete Time: 20:20 [facility] 03/08 19:18 Order name: TSH; Complete Time: 20:20 [facility] 03/08 19:11 Order name: XRAY Chest (1 view) [facility] 03/08 19:11 Order name: CT Head C Spine; Complete Time: 20:05 [facility] 03/08 19:11 Order name: Cardiac monitoring; Complete Time: 19:46 03/08 19:11 Order name: EKG - Nurse/Tech; Complete Time: 20:07 [facility] 03/08 19:11 Order name: IV Saline Lock; Complete Time: 19:47 [facility] 03/08 19:11 Order name: Labs collected and sent; Complete Time: 19:47 [facility] 03/08 19:11 Order name: O2 Per Protocol; Complete Time: 19:47 [facility] 03/08 19:11 Order name: O2 Sat Monitoring; Complete Time: 19:47 [facility] EC:08 Rate is 65 beats/min. Rhythm is regular. QRS [place] is Normal. [place] interval is normal. QRS ge interval is normal. QT interval is normal. No Q waves. T waves are Normal. No ST changes noted. Clinical impression: Normal ECG and No evidence of ischemia. Interpreted by me. Reviewed by me. Administered Medications: 20:02 Drug: Solu-CORTEF IVP 100 mg IVP once Route: IVP; Site: right forearm; rg5 20:30 Follow up: Response: No adverse reaction rg5 20:03 Drug: Boostrix Tdap IM 0.5 ml IM once; as a single dose Route: IM; Site: right deltoid; rg5 20:25 Follow up: Response: No adverse reaction rg5 20:03 Drug: Syubfvwu-Mwashscknv-Uxdzweukn Topical Ointment 1 application Topical once Route: rg5 Topical; Site: forehead; 20:03 Drug: NS 0.9% IV 1000 ml IV at 1000 ml once; to be given as a bolus over 60 minutes rg5 Route: IV; Rate: 1000 ml; Site: right forearm; 20:25 Follow up: IV Status: Completed infusion; IV Intake: 1000ml rg5 Disposition Summary: 03/08/24 20:06 Discharge Ordered Notes: Location: Home ge Problem: new ge Symptoms: have improved ge Condition: Stable ge Diagnosis - Syncope Near ge - Dizziness and giddiness ge - Unspecified injury of head, initial encounter ge - Fall on same level, unspecified ge Followup: ge - With: Private Physician - When: 2 - 3 days - Reason: Recheck today's complaints, Continuance of care, Re-evaluation by your physician Discharge Instructions: - Discharge Summary Sheet ge - Dizziness ge - Head Injury, Adult ge - Vertigo ge - Vertigo, Icvr-wn-Xzqa ge - Weakness, Mibs-fy-Fqrj ge - Head Injury, Adult, Vdso-hh-Jmgc ge - Aspirin and Your Heart ge - Dizziness, Yjgk-os-Ovvm ge Forms: - Medication Reconciliation Form ge - Antibiotic Education ge - Prescription Opioid Use ge - Patient Portal Instructions ge - Leadership Thank You Letter [facility] Prescriptions: - Neosporin (raw-alf-ztfzs) 3.5mg-400 unit- 5,000 unit/gram Topical ointment - apply 1 application TOPICAL route 3 times per day; 15 gram tube; Refills: 0, ge Product Selection Permitted Signatures: Dispatcher [employer] Geovani Resendiz MD MD cha Oliver, Kathy RN RN ko1 Hill, Rancho, RN RN rg5 Corrections: (The following items were deleted from the chart) 19:11 19:11 BASIC METABOLIC PANEL+C.LAB.BRZ ordered. EDMS EDMS 19:11 19:11 CBC+H.LAB.BRZ ordered. EDMS EDMS 19:11 19:11 HEPATIC FUNCTION+C.LAB.BRZ ordered. EDMS EDMS 19:11 19:11 MAGNESIUM+C.LAB.BRZ ordered. EDMS EDMS 19:11 19:11 PROBNP+C.LAB.BRZ ordered. EDMS EDMS 19:11 19:11 PROTIME (+INR)+COAG.LAB.BRZ ordered. EDMS EDMS 19:11 19:11 Troponin High Sensitivity+C.LAB.BRZ ordered. EDMS EDMS 19:11 19:11 Urinalysis+U.LAB.BRZ ordered. EDMS EDMS 19:11 19:11 Chest Single View+RAD.RAD.BRZ ordered. EDMS EDMS 19:11 19:11 Head C Spine MPR Wo Con+CT.RAD.BRZ ordered. EDMS EDMS 19:18 19:18 THYROID STIMULAT HORMONE+C.LAB.BRZ ordered. EDMS EDMS
--- NOTE | 2024-03-08 20:07 | ER ---
Nurse's Notes [facility] Name: Reed Claire Age: 83 yrs Sex: Male : 1940 Arrival Date: 03/08/2024 Time: 18:34 Bed 14 Private MD: Diagnosis: Syncope Near;Dizziness and giddiness;Unspecified injury of head, initial encounter;Fall on same level, unspecified Presentation: 03/08 18:40 Chief complaint: Patient states: was on the sidewalk and fell hitting the curb, didn't ko1 loose consciousness , does not take blood thinners. Had experienced a few episodes of dizziness prior to fall. Coronavirus screen: At this time, the client does not indicate any symptoms associated with coronavirus-19. Ebola Screen: No symptoms or risks identified at this time. Initial Sepsis Screen: Does the patient meet any 2 criteria? No. Patient's initial sepsis screen is negative. Does the patient have a suspected source of infection? No. Patient's initial sepsis screen is negative. Risk Assessment: Do you want to hurt yourself or someone else? Patient reports no desire to harm self or others. Onset of symptoms was March 08, 2024. 18:40 Method Of Arrival: Ambulatory ko1 18:40 Acuity: CHACE 3 ko1 Triage Assessment: 18:48 General: Appears in no apparent distress. Behavior is calm, cooperative, appropriate ko1 for age. Pain: Complains of pain in back of neck. Historical: - Allergies: 18:48 Clindamycin; ko1 - PMHx: 18:48 adrenal insufficiency; Hypothyroidism; diabetes insipidous; Leukemia; Osteoporosis; ko1 - Immunization history:: Last tetanus immunization: < 10 years ago. - Infectious Disease History:: Denies. - Social history:: Smoking status: Patient denies any tobacco usage or history of. Screenin:00 [facility] ED Fall Risk Assessment (Adult) History of falling in the last 3 months, rg5 including since admission No falls in past 3 months (0 pts) Confusion or Disorientation No (0 pts) Intoxicated or Sedated No (0 pts) Impaired Gait No (0 pts) Mobility Assist Device Used Yes (1 pt) Altered Elimination No (0 pt) Score/Fall Risk Level 0 - 2 = Low Risk Oriented to surroundings, Maintained a safe environment, Hourly rounding (assess needs \T\ fall precautionary measures) done. Abuse screen: Denies threats or abuse. Nutritional screening: No deficits noted. Tuberculosis screening: No symptoms or risk factors identified. Assessment: 19:00 General: Appears in no apparent distress. comfortable, Behavior is calm, cooperative. rg5 19:00 Pain: Complains of pain in FOREHEAD and back of neck Pain currently is 4 out of 10 on a rg5 pain scale. Quality of pain is described as aching. Neuro: Level of Consciousness is awake, alert, Oriented to person, place, time, situation, Appropriate for age. Cardiovascular: Denies chest pain. Vital Signs: 18:40 BP 135 / 86; Pulse 72; Resp 16; Temp 98.3; Pulse Ox 98% ; ko1 20:30 BP 137 / 88; Pulse 75; Resp 17; Temp 98; Pulse Ox 99% on R/A; Pain 0/10; rg5 20:30 Pain Scale: Adult rg5 ED Course: 18:38 Patient arrived in ED. mr 18:48 Triage completed. ko1 18:48 Arm band placed on right wrist. Patient placed in an exam room, on a stretcher, on ko1 pulse oximetry, Patient notified of wait time. 19:00 Patient has correct armband on for positive identification. Placed in gown. Bed in low rg5 position. Call light in reach. Side rails up X 1. Door closed. Noise minimized. Warm blanket given. 19:00 No provider procedures requiring assistance completed. Inserted saline lock: 20 gauge rg5 in right forearm, using aseptic technique. Blood collected. Flushed with 10 mL NS. 19:02 Geovani Craig MD is Attending Physician. [facility] 19:16 [place] Hill, SALIMA is Primary Nurse. rg5 19:44 CT Head C Spine In Process Unspecified. EDMS 20:10 EKG done, by ED staff, reviewed by Geovani Craig MD. oe 20:31 XRAY Chest (1 view) In Process Unspecified. EDMS 20:47 Provided Education on: POST ER CARE DONE. rg5 20:47 IV discontinued, bleeding controlled, No redness/swelling at site. Pressure dressing rg5 applied. Administered Medications: 20:02 Drug: Solu-CORTEF IVP 100 mg IVP once Route: IVP; Site: right forearm; rg5 20:30 Follow up: Response: No adverse reaction rg5 20:03 Drug: Boostrix Tdap IM 0.5 ml IM once; as a single dose Route: IM; Site: right deltoid; rg5 20:25 Follow up: Response: No adverse reaction rg5 20:03 Drug: Dwcwjill-Eqmqszpkrq-Dbcjirhet Topical Ointment 1 application Topical once Route: rg5 Topical; Site: forehead; 20:03 Drug: NS 0.9% IV 1000 ml IV at 1000 ml once; to be given as a bolus over 60 minutes rg5 Route: IV; Rate: 1000 ml; Site: right forearm; 20:25 Follow up: IV Status: Completed infusion; IV Intake: 1000ml rg5 Medication: 19:00 VIS not applicable for this client. rg5 Intake: 20:25 IV: 1000ml; Total: 1000ml. rg5 Outcome: 20:06 Discharge ordered by MD. [place] 20:30 Discharged to home rg5 20:30 Condition: stable rg5 20:30 Discharge instructions given to patient, Instructed on discharge instructions, Demonstrated understanding of instructions, follow-up care, medications, Prescriptions given X 1, 20:49 Patient left the ED. rg5 Signatures: Dispatcher [employer] EDGeovani Guzman MD MD cha Rivera, Mary, Kanu Reg mr Jasbir Sherman Kathy, SALIMA RN koRancho Brooks RN RN rg5
[2024-03-08 20:15] LABS: Specific Gravity 1.009 (1.005-1.030); Sqamous Epithelial None Seen /HPF (None Seen); Urine Bacteria <20 /HPF (<20); Urine Bilirubin NEGATIVE (Negative); Urine Blood Negative (Negative); Urine Clarity Clear (Clear); Urine Color Colorless (Yellow); Urine Culture Reflex Order NOT NEEDED; Urine Glucose NEGATIVE (Negative); Urine Ketones NEGATIVE (Negative); Urine Microscopic Reflex YN ORDER UMIC; Urine Nitrite NEGATIVE (Negative); Urine Protein NEGATIVE (Negative); Urine RBC None Seen /HPF (None Seen); Urine Urobilinogen Normal (Normal); Urine WBC <5 /HPF (<5); Urine Yeast (Budding) Trace /HPF (None Seen); Urine pH 7.5 (5.0-7.0)
--- NOTE | 2024-03-08 20:49 | RAD REPORT ---
Procedure: Chest Single View HISTORY: Cough COMPARISON: 2019 FINDINGS: The lungs appear clear of acute infiltrate. No significant pleural effusion noted. Calcified pleural plaques. The heart is borderline enlarged.. IMPRESSION: No acute abnormality is displayed.
[2024-03-08 23:39] VITALS: BP 137/88; TEMP 98; O2SAT 99
--- NOTE | 2024-03-12 12:41 | EKG ---
Test Date: 2024-03-08 Test Time: 20:05:37 Curtain Drier: VANE MEASUREMENT RESULTS: Intervals: Rate: 65 ID: [id number] QRSD: 88 QT: 416 QTc: 432 Pfeifer: P: 26 ID: [id number] QRS: -19 T: 55 INTERPRETIVE STATEMENTS: Normal sinus rhythm Normal ECG Compared to ECG 08/26/2010 01:05:48 ST (T wave) deviation no longer present Electronically Signed On 03-12-24 12:35:05 RIVETING MACHINE OPERATOR by Kentrell Samuel
== END 2024-03-08 20:49 | disposition home or self-care (01) ==
LOC: ER 18:34
DX: R55 Syncope and collapse (principal); R42 Dizziness and giddiness; S09.90XA Unspecified injury of head, initial encounter; M54.2 Cervicalgia; W18.30XA Fall on same level, unspecified, initial encounter
CPT/HCPCS: 85025; 81001; 80048; 36415; 83735; 85610; 80076; 84443; 84484; 83880; 70450; 72125; 71045; 96372; 96374; 99285; J1720; J7030; 93005

== ENCOUNTER 2024-04-28 18:57 | Emergency (ER) | payer OTHER ==
--- OUTSIDE RECORDS SUMMARY | 2024-04-28 19:00 | XMS REPORT | Continuity of Care Document ---
Author Name Unknown Address [address] [place] [address] [address] [id number] [facility] Address [address] [facility] [place] [address] [place] [address] Care Team Providers Care Personnel Counselor Name Role Phone [phone] Primary Care Physician NEGRO Heath Attending Clinician DAVE Seymour Attending Clinician BRENDAN Shelby Attending Clinician Unavailable NUBIA ROTHMAN Attending Clinician HAMIDA Berumen Attending Clinician Unavailable BREN GREEN Attending Clinician NASRA Wagner Attending Clinician JOHN Leonard Attending Clinician NYA Combs Attending Clinician BREN Harris Admitting Clinician Hernesto walker Payers Payer Name Policy Type Policy Number Effective Date Expirati on Date Source [facility] MEDICARE ADVANTAGE [id number] 2020 00:00:00 [employer] CHOICE MEDICARE PPO [id number] 2017 00:00:00 2020 00:00:00 MEDICARE PART A AND B [id number] 2004 00:00:00 2017 00:00:00 [employer] NON CONTRACTED [id number] 2011 00:00:00 2017 00:00:00 [employer] PPO POS [id number] 2011 00:00:00 2011 00:00:00 Allergies, Adverse Reactions, [...] INGREDI Active Nausea 03-11 00:00: 00 MD Javire brambila CLINDAMY JEREMY DRUG INGREDI Active Nausea [...] End Date/Time Encounter Type Admission Type Attending [facility] Care Facility Care Department Encounter ID Source 2021-03-17 18:17:32 Outpatient RAPHAEL ILM [id number] MD Javier brambila 2019-09-19 08:58:31 Outpatient RAPHAEL LIM [id number] MD Javier brambila 2023-12-19 08:45:00 2023-12-19 23:59:00 Outpatient NEGRO COWART MDA, MDA [id number] MD Javier brambila 2023-12-19 09:28:20 2023-12-19 11:02:25 Outpatient DAVE BUENROSTRO MDA MDA [id number] MD Javier brambila 2023-06-20 09:30:00 2023-06-20 23:59:00 Outpatient DAVE BUENROSTRO MDA MDA [id number] MD Javier brambila 2023-06-20 12:55:32 2023-06-20 13:16:54 Outpatient BRENDAN TADEO MDA MDA [id number] MD Javier brambila 2023-06-20 09:50:27 2023-06-20 09:50:27 Outpatient DAVE BUENROSTRO MDA MDA [id number] MD Javier brambila 2023-03-22 08:30:00 2023-03-22 23:59:00 Outpatient EL PULS, NUBIA MDA MDA [id number] MD Javier brambila 2023-03-22 11:26:12 2023-03-22 11:26:12 Outpatient SAULO AGGARWAL HAMIDA MDA MDA [id number] MD Javier brambila 2023-03-22 09:13:06 2023-03-22 09:13:06 Outpatient SAULO PULS, NUBIA MDA MDA [id number] MD Javier brambila 2022-12-22 09:30:00 2022-12-22 23:59:00 Outpatient DAVE BUENROSTRO MDA MDA [id number] MD Javier brambila 2022-12-22 10:22:29 2022-12-22 10:22:29 Outpatient DAVE BUENROSTRO MDA MDA [id number] MD Javier brambila 2022-07-21 07:48:00 2022-07-21 11:14:00 Outpatient SAULO WARNERCHATA Benítez A MDA Collin/Hep/Nu t [id number] MD Javier brambila 2022-07-20 07:07:10 2022-07-20 07:07:10 Outpatient SAULO LI DAVE MDA MDA [id number] MD Javier brambila 2022-06-14 09:30:00 2022-06-14 23:59:00 Outpatient SAULO LI DAVE MDA MDA [id number] MD Javier brambila 2022-06-14 13:03:51 2022-06-14 13:38:00 Outpatient BRENDAN TADEO MDA MDA [id number] MD Javier brambila 2022-06-14 09:52:15 2022-06-14 09:52:15 Outpatient DAVE BUENROSTRO MDA MDA [id number] MD Javier brambila 2022-03-21 07:45:00 2022-03-21 23:59:00 Outpatient EL ALESSIA, HAMIDA MDA MDA [id number] MD Javier brambila 2022-03-21 10:56:25 2022-03-21 12:01:56 Outpatient EL ALESSIA, HAMIDA MDA MDA [id number] MD Javier brambila 2022-03-21 09:04:42 2022-03-21 09:04:42 Outpatient SAULO AGGARWAL, HAMIDA MDA MDA [id number] MD Javier brambila 2021-12-16 08:15:00 2021-12-16 23:59:00 Outpatient DAVE BUENROSTRO MDA MDA [id number] MD Javier brambila 2021-12-16 09:42:26 2021-12-16 09:42:26 Outpatient DAVE BUENROSTRO MDA MDA [id number] MD Javier brambila 2020-12-15 12:21:16 2020-12-15 23:59:00 Outpatient DAVE BUENROSTRO MDA MDA [id number] MD Javier brambila 2020-12-15 12:21:42 2020-12-15 17:02:03 Outpatient DAVE BUENROSTRO MDA MDA [id number] MD Javier brambila 2020-10-21 09:15:00 2020-10-21 23:59:00 Outpatient SAULO AGGARWAL, HAMIDA MDA MDA [id number] MD Javier brambila 2020-10-21 09:52:37 2020-10-21 10:52:13 Outpatient SAULO AGGARWAL, HAMIDA MDA MDA [id number] MD Javier brambila 2020-10-21 08:42:05 2020-10-21 08:42:05 Outpatient SAULO AGGARWAL, HAMIDA MDA MDA [id number] MD Javier brambila 2020-09-17 08:48:03 2020-09-17 23:59:00 Outpatient DAVE BUENROSTRO MDA MDA [id number] MD Javier brambila 2020-09-17 08:48:26 2020-09-17 15:04:22 Outpatient DAVE BUENROSTRO MDA MDA [id number] MD Javier brambila 2020-05-24 09:00:00 2020-05-24 23:59:00 Outpatient DAVE BUENROSTRO MDA MDA [id number] MD Javier brambila 2020-05-24 10:28:17 2020-05-24 10:28:17 Outpatient DAVE BUENROSTRO MDA MDA [id number] MD Javier brambila 2020-03-26 08:25:26 2020-03-26 23:59:00 Outpatient SAULO NASRA BAILEY MDA MDA [id number] MD Javier brambila 2020-03-26 09:06:56 2020-03-26 21:24:58 Outpatient BRENDAN TADEO MDA MDA [id number] MD Javier brambila 2020-03-26 08:26:12 2020-03-26 13:39:50 Outpatient DAVE BUENROSTRO MDA MDA [id number] MD Javier brambila 2020-03-25 00:00:00 2020-03-25 00:00:00 Outpatient BRENDAN TADEO MDA MDA [id number] MD Javier brambila 2020-03-24 00:00:00 2020-03-24 00:00:00 Outpatient DAVE BUENROSTRO MDA MDA [id number] MD Javier brambila 2020-03-24 00:00:00 2020-03-24 00:00:00 Outpatient SAULO BOUCHER NASRA MDA MDA [id number] MD Javier brambila 2019-09-26 08:09:41 2019-09-26 23:59:00 Outpatient SAULO AGGARWAL HAMIDA MDA MDA [id number] MD Javier brambila 2019-09-22 12:17:52 2019-09-22 13:21:34 Outpatient SAULO AGGARWAL HAMIDA MDA MDA [id number] MD Javier brambila 2019-09-19 07:48:44 2019-09-19 23:59:00 Outpatient DAVE BUENROSTRO MDA MDA [id number] MD Javier brambila 2019-09-19 07:49:16 2019-09-19 12:47:10 Outpatient DAVE BUENROSTRO MDA MDA [id number] MD Javier brambila 2019-09-19 09:39:05 2019-09-19 09:39:05 Outpatient JOHN BLACKWOOD MDA MDA [id number] MD Javier brambila 2019-09-19 08:05:42 2019-09-19 08:49:41 Outpatient NYA LUZ MDA MDA [id number] MD Javier brambila 2017-10-19 12:18:00 2017-10-19 18:07:16 Outpatient SAULO Granados AMCELE MDA MDA [id number] MD Javier brambila 2017-04-05 00:00:00 2017-04-05 00:00:00 Outpatient JOHN BLACKWOOD MDA MDA [id number] MD Javier brambila 2017-04-04 00:00:00 2017-04-04 00:00:00 Outpatient SAULO Granados AMCELE MDA MDA [id number] MD Javier brambila
[2024-04-28] MEDS ORDERED: ACETAMINOPHEN 325 MG TABLET ONE (19:30)
--- NOTE | 2024-04-28 20:23 | RAD REPORT ---
EXAM: Foot Left 3 View HISTORY: PAIN COMPARISON: None FINDINGS: Lucency seen through the midportion and extending to the lateral cortex of the calcaneus. IMPRESSION: Suspected calcaneal fracture. Consider CT to confirm.
--- NOTE | 2024-04-28 20:24 | RAD REPORT ---
EXAM:Tib Fib Left HISTORY: PAIN COMPARISON: None IMPRESSION: No fracture of the tibia or fibula identified. Peripheral vascular calcifications.
--- NOTE | 2024-04-28 20:56 | RAD REPORT ---
EXAMINATION: CT HEAD WITHOUT CONTRAST CT CERVICAL SPINE WITHOUT CONTRAST CLINICAL INDICATION: Male, 83 years old. head injury TECHNIQUE: Axial CT images from the skull base to the vertex without intravenous contrast. Axial CT i mages through the cervical spine were obtained without intravenous contrast. Sagittal and coronal reformatted images were created from the data set. Coronal and sagittal reformatted images were creat ed from the data set. One or more of the following dose reduction techniques were used: Automated exposure control, adjustment of the mA and/or kV according to patient size, and/or iterative reconstr uction. Unless otherwise specified, incidental findings do not require dedicated imaging follow-up. [id number]. COMPARISON: 03/08/2024 FINDINGS: Head: INTRACRANIAL: No acute intracranial hemorrhage. No hydrocephalus. No mass effect or midline shift. No significant white matter disease. VASCULATURE: No visualized abnormalities in the arteries or dural venous sinuses. Ectasia of the ante rior and posterior circulation. SCALP/SKULL: No calvarial fracture identified. No acute soft tissue abnormality. SINUSES: The visualized paranasal sinuses are mostly clear. No significant mastoid fluid. Cervical spine: ALIGNMENT: The cervical spine has normal alignment without scoliosis or spondylolisthesis. BONE: Vertebral body heights are maintained. No aggressive osseous lesions. DEGENERATIVE: Multilevel cervical spondylosis with evidence of bilateral neural foraminal narrowing. No high grade central spinal stenosis. Neural foraminal narrowing is most pronounced at C3-4 and C5-6 and C6-7 levels. SOFT TISSUE: No significant abnormalities in the soft tissue of the neck. The visualized lung apices are clear. Carotid artery calcifications. IMPRESSION: No acute intracranial abnormality. No acute fracture or traumatic malalignment of the cervical spine.
--- NOTE | 2024-04-28 21:47 | RAD REPORT ---
EXAM: Thoracic Spine W/o Cont HISTORY:fall COMPARISON: None TECHNIQUE: Multiple contiguous axial images were obtained in a CT of the thoracic spine without contr ast. Sagittal and coronal reformats were performed. One or more of the following dose reduction techniques were used: Automated exposure control, adjustment of the mA and/or kV according to patient size, and/or iterative reconstruction. Unless otherwise specified, incidental findings do not require dedicated imaging follow-up. [id number]. FINDINGS: The vertebral bodies and intervertebral discs demonstrate normal height and alignment witho ut fracture or subluxation. . Scattered mild endplate spurring and disc height loss. . The prevertebral and paraspinal soft tissues are unremarkable. IMPRESSION: No evidence of acute osseous abnormality of the thoracic spine.
--- NOTE | 2024-04-28 21:49 | RAD REPORT ---
EXAMINATION: CT LUMBAR SPINE WITHOUT CONTRAST CLINICAL INDICATION: Male, 83 years old. fall TECHNIQUE: Axial CT images were obtained through the lumbar spine in soft tissue and bone windows wit hout intravenous contrast. Coronal and Sagittal reformatted images were created from the data set. One or more of the following dose reduction techniques were used: Automated exposure control, adjustm ent of the mA and/ or kV according to patient size, and/or iterative reconstruction. Unless otherwise specified, incidental findings do not require dedicated imaging follow-up. [id number]. COMPARISON: No prior exam. FINDINGS: For purposes of this dictation, it is assumed that there are 5 non rib-bearing lumbar type vertebrae, and the most caudal fully segmented lumbar vertebra is labeled L5. ALIGNMENT: Grade 1 anterolisthesis of L3 on L4. BONES: No significant soft tissue abnormalities. No aggressive osseous lesions. DISCS: Intervertebral disc space heights are maintained. LEVELS: Scattered degenerative changes with evidence of mild bilateral neural foraminal narrowing inc luding at L3-4 where there are facet degenerative changes. No high-grade central spinal stenosis. There is likely mild to moderate central spinal stenosis at the L2-3 level. SOFT TISSUE: Distended bladder. IMPRESSION: No acute lumbar spine abnormalities.
--- NOTE | 2024-04-28 22:03 | RAD REPORT ---
EXAMINATION: Pelvis Wo Cont CLINICAL INDICATION: Male, 83 years old. fall TECHNIQUE: CT pelvis was performed, without IV contrast, as per department protocol. Axial, sagittal and coronal reconstructions were obtained. One or more of the following dose reduction techniques were used: Automated exposure control, adjustment of the mA and/or kV according to patient size, and/ or iterative reconstruction. Unless otherwise specified, incidental findings do not require dedicated imaging follow-up. [id number]. IV CONTRAST: Not administered. COMPARISON: No prior exam. FINDINGS: SMALL BOWEL/COLON: Small bowel has normal course and caliber. No colonic wall thickening or pericolon ic inflammatory changes. LYMPH NODES: No lymphadenopathy. ABDOMINAL AORTA AND OTHER VESSELS: Normal caliber aorta and IVC. PERITONEUM: No abnormal free fluid. No free air. ABDOMINAL WALL: No significant abnormality. REPRODUCTIVE ORGANS: Prostatomegaly. URINARY BLADDER: Distended but otherwise unremarkable. MUSCULOSKELETAL: No acute or suspicious osseous abnormality. ADDITIONAL FINDINGS: None. IMPRESSION: No pelvic or hip fracture identified.
--- NOTE | 2024-04-28 22:06 | RAD REPORT ---
EXAMINATION: Ankle Left Wo Con CLINICAL INDICATION: Male, 83 years old.pain TECHNIQUE: CT of the left ankle and foot extremity was performed without contrast. Reformats were per formed. One or more of the following dose reduction techniques were used: Automated exposure control, adjustment of the mA and/or kV according to patient size, and/or iterative reconstruction. U nless otherwise specified, incidental findings do not require dedicated imaging follow-up. [id number]. COMPARISON: Same-day radiograph FINDINGS: Comminuted calcaneal fracture identified which is only mildly displaced. The fracture extends to the subtalar joint. No fragment is identified within the subtalar joint. The fracture is primarily at the midportion of the calcaneus. No evidence of tendon entrapment. The fracture line does extend up t o the calcaneocuboid joint. The alignment of the ankle is unremarkable. No fracture of the tibia or fibula. No other foot fractures seen. IMPRESSION: Comminuted calcaneal fracture with only mild displacement but extension to the subtalar joint and jerilyn caneocuboid joint. No evidence of tendon entrapment or intra-articular bone fragments. No other fractures identified.
--- NOTE | 2024-04-28 23:42 | ER ---
Nurse's Notes [facility] Name: Reed Claire Age: 83 yrs Sex: Male : 1940 Arrival Date: 04/28/2024 Time: 18:57 Bed 8 Private MD: Diagnosis: Displaced intraarticular fracture of left calcaneus, initial encounter for closed fracture;Fall on and from ladder, initial encounter;Contusion of unspecified part of head, initial encounter Presentation: 04/28 19:07 Chief complaint: Patient states: I was fixing a fridge door on a 2 step ladder, lost my ll1 balance and fell striking my head on a concrete floor. Coronavirus screen: Vaccine status: Patient reports receiving the 2nd dose of the covid vaccine. Ebola Screen: Patient negative for fever greater than or equal to 101.5 degrees Fahrenheit, and additional compatible Ebola Virus Disease symptoms Patient denies exposure to infectious person. Patient denies travel to an Ebola-affected area in the 21 days before illness onset. No symptoms or risks identified at this time. Initial Sepsis Screen: Does the patient meet any 2 criteria? No. Patient's initial sepsis screen is negative. Does the patient have a suspected source of infection? No. Patient's initial sepsis screen is negative. Risk Assessment: Do you want to hurt yourself or someone else? Patient reports no desire to harm self or others. Onset of symptoms was April 28, 2024 at 16:30. 19:07 Method Of Arrival: Wheelchair ll1 19:07 Acuity: CHACE 3 ll1 Triage Assessment: 19:09 General: Appears in no apparent distress. comfortable, Behavior is calm, cooperative, ll1 appropriate for age. Pain: Complains of pain in left parietal area, left medial ankle, anterior aspect of left ankle and dorsum of left foot Pain currently is 8 out of 10 on a pain scale. EENT: No deficits noted. No signs and/or symptoms were reported regarding the EENT system. Neuro: No deficits noted. Level of Consciousness is awake, alert, obeys commands, Oriented to person, place, time, situation, Appropriate for age. Cardiovascular: Denies chest pain, Heart tones S1 S2 present Capillary refill < 3 seconds in bilateral fingers Patient's skin is warm and dry. Respiratory: Airway is patent Respiratory effort is even, unlabored, Respiratory pattern is regular, symmetrical. GI: No signs and/or symptoms were reported involving the gastrointestinal system. : No signs and/or symptoms were reported regarding the genitourinary system. Derm: Wound noted left parietal area Wound is abrasion to back of head Reports pain that is 8 out of 10 on a pain scale. Musculoskeletal: Circulation, motion, and sensation intact. Range of motion: limited in left ankle Reports pain in left medial ankle, anterior aspect of left ankle and dorsum of left foot. Historical: - Allergies: 19:09 Clindamycin; ll1 - PMHx: 19:09 adrenal insufficiency; diabetes insipidous; Hypothyroidism; Leukemia; Osteoporosis; ll1 - Immunization history:: Adult Immunizations up to date. - Infectious Disease History:: Denies. - Social history:: Smoking status: Patient denies any tobacco usage or history of. Screenin:26 [facility] ED Fall Risk Assessment (Adult) History of falling in the last 3 months, cm10 including since admission Yes- single mechanical fall (1 pt) Confusion or Disorientation No (0 pts) Intoxicated or Sedated No (0 pts) Impaired Gait Yes (1 pt) Mobility Assist Device Used Yes (1 pt) Altered Elimination No (0 pt) Score/Fall Risk Level 3 or more points = High Risk Oriented to surroundings, Maintained a safe environment, Hourly rounding (assess needs \T\ fall precautionary measures) done. Abuse screen: Denies threats or abuse. Denies injuries from another. Nutritional screening: No deficits noted. Tuberculosis screening: No symptoms or risk factors identified. Assessment: 19:26 General: Appears in no apparent distress. comfortable, Behavior is calm, cooperative. cm10 Pain: Complains of pain in left ankle. Neuro: No deficits noted. Level of Consciousness is awake, alert, obeys commands, Oriented to person, place, time, situation, Appropriate for age. Respiratory: No deficits noted. Airway is patent Respiratory effort is even, unlabored, Respiratory pattern is regular, symmetrical. Musculoskeletal: Swelling present in left ankle. Injury Description: Laceration sustained to scalp. 21:11 General: Appears in no apparent distress. comfortable, Behavior is calm, cooperative. al5 Pain: Complains of pain in scalp. Neuro: Level of Consciousness is awake, alert, obeys commands, Oriented to person, place, time, situation. Cardiovascular: Capillary refill < 3 seconds Patient's skin is warm and dry. Respiratory: Airway is patent Respiratory effort is even, unlabored, Respiratory pattern is regular, symmetrical. GI: No signs and/or symptoms were reported involving the gastrointestinal system. : No signs and/or symptoms were reported regarding the genitourinary system. EENT: No signs and/or symptoms were reported regarding the EENT system. Derm: laceration to back of scalp, bleeding minimal. Musculoskeletal: Swelling present in left ankle. 04/29 00:00 Reassessment: Patient appears in no apparent distress at this time. No changes from al5 previously documented assessment. Patient and/or family updated on plan of care and expected duration. Pain level reassessed. Patient is alert, oriented x 3, equal unlabored respirations, skin warm/dry/pink. Vital Signs: 04/28 19:07 BP 145 / 101; Pulse 80; Resp 18; Temp 98.3; Pulse Ox 99% ; Weight 61.23 kg; Height 5 ll1 ft. 8 in. ; Pain 8/10; 19:25 BP 154 / 90; Pulse 70; Resp 15; Pulse Ox 98% ; cm10 20:00 BP 148 / 90; Pulse 66; Resp 15; Pulse Ox 96% ; al5 20:41 BP 152 / 94; Pulse 70; Resp 16; Pulse Ox 98% on R/A; al5 21:00 BP 152 / 93; Pulse 68; Resp 16; Pulse Ox 98% on R/A; al5 22:30 BP 174 / 101; Pulse 62; Resp 15; Pulse Ox 99% ; al5 04/29 00:00 BP 163 / 102; Pulse 77; Resp 16; Pulse Ox 98% ; al5 04/28 19:07 Body Mass Index 20.53 (61.23 kg, 172.72 cm) ll1 04/28 19:07 Pain Scale: Adult ll1 ED Course: 04/28 19:01 Patient arrived in ED. gm2 19:03 Geovani Mckee PA is PHCP. cp 19:03 Delvis Kasper MD is Attending Physician. cp 19:09 Triage completed. ll1 19:09 Arm band placed on right wrist. ll1 19:21 Rigid cervical collar applied. cm10 19:26 Patient has correct armband on for positive identification. Bed in low position. Call cm10 light in reach. Side rails up X2. Pulse ox on. NIBP on. 20:09 XRAY Foot LEFT 3 View In Process Unspecified. EDMS 20:09 XRAY Tib Fib LEFT In Process Unspecified. EDMS 20:37 CT Head C Spine In Process Unspecified. EDMS 20:41 Jamila Del Toro, RN is Primary Nurse. al5 20:56 No provider procedures requiring assistance completed. al5 21:34 CT Thoracic Spine Wo Cont In Process Unspecified. EDMS 21:34 CT Lumbar Spine Wo Con In Process Unspecified. EDMS 21:34 CT Pelvis wo Cont In Process Unspecified. EDMS 21:44 Foot Left Wo Con In Process Unspecified. EDMS 21:44 Ankle Left Wo Con In Process Unspecified. EDMS 23:40 Italo Mercado MD is Referral Physician. cp 23:41 Orthoglass splint: stirrup splint applied on left leg. [facility] 04/29 00:07 Provided Education on: discharge follow up with specialist. al5 00:08 Patient did not have IV access during this emergency room visit. al5 Administered Medications: 04/28 21:11 Drug: Acetaminophen PO 650 mg PO once Route: PO; al5 03 00:06 Follow up: Response: No adverse reaction; Pain is decreased al5 Medication: 04/28 20:56 VIS not applicable for this client. al5 Point of Care Testing: Blood Glucose: 19:39 Blood Glucose: 112 mg/dL; cm10 Ranges: Outcome: 23:42 Discharge ordered by MD. cp 04/29 00:09 Discharged to home via wheelchair, with family, al5 Condition: good Discharge instructions given to patient, family, Instructed on discharge instructions, follow up and referral plans. medication usage, Demonstrated understanding of instructions, follow-up care, medications, Prescriptions given X 1, 00:09 Patient left the ED. al5 Signatures: Dispatcher [employer] EDOK Geovani Mckee PA PA cp Lewis, Lynsay RN RN ll1 Jeannie Silvestre RN RN cm10 Amber Delgadillo 2 Tia Leon [facility] Jamila Del Toro RN RN al5 Corrections: (The following items were deleted from the chart) 04/28 21:30 20:42 Reassessment: Patient appears in no apparent distress at this time. No changes al5 from previously documented assessment. Patient and/or family updated on plan of care and expected duration. Pain level reassessed. al5 21:28 General: Appears in no apparent distress. comfortable, Behavior is calm, al5 cooperative, al5 21:28 Pain: Complains of pain in scalp al5 al5 21:28 Neuro: Level of Consciousness is awake, alert, obeys commands, Oriented to al5 person, place, time, situation, al5 21:28 Cardiovascular: Capillary refill < 3 seconds Patient's skin is warm and dry. al5 al5 21:28 GI: No signs and/or symptoms were reported involving the gastrointestinal system. al5 al5 21:28 Respiratory: Airway is patent Respiratory effort is even, unlabored, Respiratory al5 pattern is regular, symmetrical, al5 21:28 : No signs and/or symptoms were reported regarding the genitourinary system. al5al5 21:28 EENT: No signs and/or symptoms were reported regarding the EENT system. al5 al5 21:28 Derm: laceration to back of scalp, bleeding minimal al5 al5 21:28 Musculoskeletal: Swelling present in left ankle al5 al5 : 20:40 Neuro: Level of Consciousness is awake, alert, obeys commands, Oriented to al5 person, place, time, situation, al5 20:40 General: Appears in no apparent distress. comfortable, Behavior is calm, al5 cooperative, al5 20:40 Pain: Complains of pain in scalp al5 al5 20:40 Cardiovascular: Capillary refill < 3 seconds Patient's skin is warm and dry. al5 al5 20:40 Respiratory: Airway is patent Respiratory effort is even, unlabored, Respiratory al5 pattern is regular, symmetrical, al5 20:40 GI: No signs and/or symptoms were reported involving the gastrointestinal system. al5 al5 20:40 : No signs and/or symptoms were reported regarding the genitourinary system. al5al5 20:40 EENT: No signs and/or symptoms were reported regarding the EENT system. al5 al5 20:40 Derm: laceration to back of scalp, bleeding minimal al5 al5 21:32 20:40 Musculoskeletal: Swelling present in left ankle al5 al5 21:33 20:30 BP 148 / 90; Pulse 66bpm; Resp 15bpm; Pulse Ox 96%; al5 al5
--- NOTE | 2024-04-28 23:42 | EDPHYS ---
Physician Documentation [facility] Name: Reed Claire Age: 83 yrs Sex: Male : 1940 Arrival Date: 04/28/2024 Time: 18:57 Bed 8 Private MD: ED Physician Delvis Kasper HPI: 04/28 19:25 This 83 yrs old Male presents to ER via Wheelchair with complaints of Fall Injury, Head cp Injury-Adult, Ankle Swelling. 19:25 Details of fall: The patient fell from a height, from a ladder, approximately 3 feet, cp and struck a concrete surface. Onset: The symptoms/episode began/occurred just prior to arrival. Associated injuries: The patient sustained injury to the head, contusion, left ankle and left foot, painful injury. Severity of symptoms: in the emergency department the symptoms are unchanged, despite home interventions. Historical: - Allergies: 19:09 Clindamycin; ll1 - PMHx: 19:09 adrenal insufficiency; diabetes insipidous; Hypothyroidism; Leukemia; Osteoporosis; ll1 - Immunization history:: Adult Immunizations up to date. - Infectious Disease History:: Denies. - Social history:: Smoking status: Patient denies any tobacco usage or history of. ROS: 19:30 MS/extremity: Positive for injury or acute deformity, pain, swelling, tenderness, of cp the left ankle and left foot, 19:30 Neck: Negative for pain with movement, pain at rest, cp 19:30 Cardiovascular: Negative for chest pain, palpitations, 19:30 Abdomen/GI: Negative for abdominal pain, vomiting, diarrhea, constipation, 19:30 Back: Negative for pain at rest, pain with movement, 19:30 Neuro: Positive for headache, 19:30 Eyes: Negative for injury, pain, redness, and discharge, cp 19:30 Constitutional: Negative for body aches, chills, fever, poor PO intake, 19:30 ENT: Negative for drainage from ear(s), ear pain, sore throat, difficulty swallowing, difficulty handling secretions, 19:30 Respiratory: Negative for cough, shortness of breath, wheezing, 19:30 All other systems are negative, Exam: 19:33 Constitutional: The patient appears in no acute distress, alert, awake, cp non-diaphoretic, non-toxic, well developed, well nourished, uncomfortable, 19:33 Head/face: Noted is abrasion(s), of the left side of the back of head, contusion, that cp is deep, of the left side of the back of head, swelling, of the left side of the back of head, tenderness, that is moderate, of the left side of the back of head, 19:33 Eyes: Periorbital structures: appear normal, Pupils: equal, round, and reactive to light and accomodation, Extraocular movements: intact throughout, Conjunctiva: normal, no exudate, no injection, Sclera: no appreciated abnormality, Lids and lashes: appear normal, bilaterally, 19:33 ENT: External ear(s): are unremarkable, Nose: is normal, Mouth: Lips: moist, Oral mucosa: moist, Posterior pharynx: Airway: no evidence of obstruction, patent, 19:33 Neck: C-spine: vertebral tenderness, is not appreciated, crepitus, is not appreciated, ROM/movement: pain, that is mild, with any movement, limited range of motion, is not appreciated, 19:33 Chest/axilla: Inspection: normal, Palpation: is normal, no crepitus, no tenderness, 19:33 Cardiovascular: Rate: normal, Edema: is not appreciated, JVD: is not appreciated, 19:33 Respiratory: the patient does not display signs of respiratory distress, Respirations: normal, no use of accessory muscles, no retractions, labored breathing, is not present, Breath sounds: are clear throughout, no decreased breath sounds, no stridor, no wheezing, 19:33 Abdomen/GI: Inspection: abdomen appears normal, Palpation: abdomen is soft and non-tender, in all quadrants, 19:33 Back: pain, is absent, 19:33 Musculoskeletal/extremity: Extremities: noted in the dorsum of left foot and left ankle: pain, swelling, tenderness, ROM: limited passive range of motion due to pain, in the left ankle, Pulses: noted to be 2+ in the left dorsalis pedis artery, the left foot and left leg Sensation intact. 19:33 Neuro: Orientation: to person, place \T\ time. Mentation: is normal, Motor: moves all fours, strength is normal, Sensation: is normal, Vital Signs: 19:07 BP 145 / 101; Pulse 80; Resp 18; Temp 98.3; Pulse Ox 99% ; Weight 61.23 kg; Height 5 ll1 ft. 8 in. ; Pain 8/10; 19:25 BP 154 / 90; Pulse 70; Resp 15; Pulse Ox 98% ; cm10 20:00 BP 148 / 90; Pulse 66; Resp 15; Pulse Ox 96% ; al5 20:41 BP 152 / 94; Pulse 70; Resp 16; Pulse Ox 98% on R/A; al5 21:00 BP 152 / 93; Pulse 68; Resp 16; Pulse Ox 98% on R/A; al5 22:30 BP 174 / 101; Pulse 62; Resp 15; Pulse Ox 99% ; al5 04/29 00:00 BP 163 / 102; Pulse 77; Resp 16; Pulse Ox 98% ; al5 04/28 19:07 Body Mass Index 20.53 (61.23 kg, 172.72 cm) ll1 04/28 19:07 Pain Scale: Adult ll1 Procedures: 04/28 23:30 Splinting: Splint applied to left foot using Orthoglass splint, applied by myself. cp tech. Examined by me, post splint application: neurovascular intact, Patient tolerated well. MDM: 19:10 Medical Screening Exam initiated cp 20:05 Differential diagnosis: closed head injury, contusion, fracture, laceration, multiple cp trauma. 22:15 Data reviewed: vital signs, nurses notes, lab test result(s), radiologic studies, CT cp scan, plain films, and as a result, I will discharge patient. 23:41 I considered the following discharge prescriptions or medication management in the emergency department Medications were administered in the Emergency Department. See MAR. Care significantly affected by the following chronic conditions: Diabetes, Cancer. Counseling: I had a detailed discussion with the patient and/or guardian regarding the historical points, exam findings, and any diagnostic results supporting the discharge/admit diagnosis, radiology results, the need for outpatient follow up, for definitive care, a orthopedic surgeon, to return to the emergency department if symptoms worsen or persist or if there are any questions or concerns that arise at home. Response to treatment: the patient's symptoms have markedly improved after treatment, and as a result, I will discharge patient. Special discussion: Based on the patient's history, exam and DX evaluation, there is no indication for emergent intervention or inpatient TX. It is understood by the patient/guardian that if the SXs persist or worsen they need to return immediately for re-evaluation. 04/28 19:50 Order name: Glucose, Ancillary Testing; Complete Time: 20:03 EDMS 04/28 19:24 Order name: CT Head C Spine; Complete Time: 21:03 cp 04/28 21:03 Interpretation: Reviewed report. cp 04/28 19:24 Order name: XRAY Foot LEFT 3 View; Complete Time: 20:55 cp 04/28 20:55 Interpretation: Reviewed report. cp 04/28 19:24 Order name: XRAY Tib Fib LEFT; Complete Time: 20:55 cp 04/28 21:11 Order name: CT Thoracic Spine Wo Cont; Complete Time: 22:09 cp 04/28 22:10 Interpretation: Report reviewed. cp 04/28 21:11 Order name: CT Lumbar Spine Wo Con; Complete Time: 22:09 cp 04/28 22:10 Interpretation: Report reviewed. cp 04/28 21:11 Order name: CT Pelvis wo Cont; Complete Time: 22:09 cp 04/28 22:10 Interpretation: Report reviewed. cp 04/28 21:29 Order name: Foot Left Wo Con; Complete Time: 22:09 EDMS 04/28 22:11 Interpretation: Report reviewed. cp 04/28 21:29 Order name: Ankle Left Wo Con; Complete Time: 22:09 EDMS 04/28 19:24 Order name: Accucheck Blood Glucose; Complete Time: 19:39 cp 04/28 22:12 Order name: Splint Leg: Short Leg; Complete Time: 23:44 cp Administered Medications: 21:11 Drug: Acetaminophen PO 650 mg PO once Route: PO; al5 04/29 00:06 Follow up: Response: No adverse reaction; Pain is decreased al5 Point of Care Testing: Blood Glucose: 04/28 19:39 Blood Glucose: 112 mg/dL; cm10 Ranges: Critical Glucose Levels:Adult <50 mg/dl or >400 mg/dl <40 mg/dl or >180 mg/dl Disposition: 04/29 20:19 Chart complete. cp Disposition Summary: 04/28/24 23:42 Discharge Ordered Notes: Location: Home cp Problem: new cp Symptoms: have improved cp Condition: Stable cp Diagnosis - Displaced intraarticular fracture of left calcaneus, initial encounter for closed cp fracture - Fall on and from ladder, initial encounter cp - Contusion of unspecified part of head, initial encounter cp Followup: cp - With: Italo Mercado MD - When: 2 - 3 days - Reason: left heel fracture Discharge Instructions: - Discharge Summary Sheet cp - Calcaneal Fracture Repair Surgery cp - Facial or Scalp Contusion cp - Head Injury, Adult cp - Understanding Your Risk for Falls cp Forms: - Medication Reconciliation Form cp - Antibiotic Education cp - Prescription Opioid Use cp - Patient Portal Instructions cp - Leadership Thank You Letter cp Prescriptions: - Tylenol-Codeine #3 300mg-30mg Oral tablet - take 1 tablet ORAL route every 4 hours As needed; 16 tablet; Refills: 0, cp Product Selection Permitted Signatures: Dispatcher [employer] EDMS Geovani Mckee PA PA cp Lewis, Lynsay, RN RN ll1 Jamila Del Toro RN RN al5 Corrections: (The following items were deleted from the chart) 04/28 21:12 21:12 Pelvis Wo [email or web address] ordered. [facility] 21:28 21:18 CT LEFT FOOT WO CONTRAST ordered. [facility] 21:29 21:18 CT LEFT ANKLE WO CONTRAST ordered. [facility] 04/29 20:18 04/28 23:05 I considered the following discharge prescriptions or medication management cp in the emergency department Medications were administered in the Emergency Department. See [facility] 04/29 20:18 04/28 23:05 Care significantly affected by the following chronic conditions: Diabetes, cp Cancer, cp 04/29 20:04/28 23:05 Counseling: I had a detailed discussion with the patient and/or guardian cp regarding the historical points, exam findings, and any diagnostic results supporting the discharge/admit diagnosis, radiology results, the need for outpatient follow up, for definitive care, a orthopedic surgeon, to return to the emergency department if symptoms worsen or persist or if there are any questions or concerns that arise at home, cp 04/30 19:04/28 23:05 Response to treatment: the patient's symptoms have markedly improved after cp treatment, and as a result, I will discharge patient, cp 04/30 19:04/28 23:05 Special discussion: Based on the patient's history, exam and DX evaluation, cp there is no indication for emergent intervention or inpatient TX. It is understood by the patient/guardian that if the SXs persist or worsen they need to return immediately for re-evaluation. cp
[2024-04-29 00:41] VITALS: TEMP 98.3
[2024-04-29 00:43] VITALS: O2SAT 98
[2024-04-29 00:49] VITALS: BP 163/102
== END 2024-04-29 00:09 | disposition home or self-care (01) ==
LOC: ER 18:57
PROC: 2W3TX1Z Immobilization of Left Foot using Splint (ICD-10-PCS; principal; 2024-04-29)
DX: S92.062A Displaced intraarticular fracture of left calcaneus, initial encounter for closed fracture (principal); S00.83XA Contusion of other part of head, initial encounter; W11.XXXA Fall on and from ladder, initial encounter
CPT/HCPCS: 70450; 72125; 72128; 72131; 72192; 73700; 82947; 99284